=== PATIENT | female | born 1965 | race Caucasian/White ===

== ENCOUNTER 2024-02-20 15:50 | Inpatient (IN) | payer OTHER ==
[~2024-02-20] VITALS: Ht 167.6 cm; Wt 79.1 kg
[2024-02-20 17:19] LABS: BASOPHILS % (AUTO) 0.2 % (0.0-2.0); EOSINOPHILS # (AUTO) 0.3 K/uL (0.0-0.7); HEMATOCRIT 38.7 % (31.2-41.9); HEMOGLOBIN 12.8 g/dL (10.9-14.3); LYMPHOCYTES # (AUTO) 3.3 K/uL (0.8-4.8); LYMPHOCYTES % (AUTO) 25.2 % (20.5-51.5); MEAN CORPUSCULAR HEMOGLOBIN 27.4 uug (24.7-32.8); MEAN CORPUSCULAR HGB CONC 33 g/dL (32.3-35.6); MEAN CORPUSCULAR VOLUME 83.3 fL (75.5-95.3); MONOCYTES # (AUTO) 1.3 K/uL (0.1-1.30); MONOCYTES % (AUTO) 9.7 % (0.0-11.0); NEUTROPHILS # (AUTO) 8.2 K/uL (1.8-8.9); NEUTROPHILS % (AUTO) 62.9 % (38.5-71.5); PLATELET COUNT (AUTO) 349 K/uL (179-408); RED BLOOD CELL COUNT(AUTO) 4.65 MIL/uL (3.63-4.92); RED CELL DISTRIBUTION WIDTH 14.6 % (12.3-17.7)
[2024-02-20 17:23] LABS: DIFFERENTIAL COMMENT 1
[2024-02-20 17:28] LABS: CALCIUM 10.7 mg/dL (8.5-10.1); CREATININE 0.6 mg/dL (0.6-1.3); POTASSIUM 3.9 mmol/L (3.5-5.1)
[2024-02-20 17:34] LABS: BILIRUBIN,DIRECT 0.1 mg/dL (0.0-0.2); BILIRUBIN,TOTAL 0.2 mg/dL (0.2-1.0); TOTAL PROTEIN, SERUM 7.3 g/dL (6.4-8.2)
[2024-02-20 17:38] LABS: LACTIC ACID 2.5 mmol/L (0.4-2.0)
[2024-02-20 17:56] LABS: *BILIRUBIN,URIN NEGATIVE (NEGATIVE); *BLOOD, URINE 2+ (NEGATIVE); *CLARITY,URINE SLIGHTLY CLOUDY (CLEAR); *COLOR,URINE YELLOW (YELLOW); *KETONES,URINE TRACE (NEGATIVE); *PROTEIN,URINE 1+ (NEGATIVE); *UROBILINOGEN,URINE 0.2 E.U./dl (NORMAL); LEUKOCYTE ESTERASE ,URINE TRACE (NEGATIVE); NITRITE, URINE POSITIVE (NEGATIVE)
[2024-02-20 17:57] LABS: UGLUCOSE 3+ (NEGATIVE)
[2024-02-20 17:58] LABS: MAGNESIUM 1.7 mg/dL (1.8-2.4)
[2024-02-20 17:58] LABS: BACTERIA,URINE FEW /HPF (NONE SEEN)
[2024-02-20] MEDS: IV NS 1000 ML 1,000 ML IV ONE (17:59)
[2024-02-20] MEDS ORDERED: MAGNESIUM SULFATE/D5W 300 ML ONE (18:22)
[2024-02-20] MEDS: MAGNESIUM SULFATE/D5W 100 ML IV SCH (18:29)
[2024-02-20] MEDS: GENTAMICIN SULFATE 20 MG/2 ML VIAL IV ONE (19:21)
[2024-02-20] MEDS ORDERED: GENTAMICIN SULFATE 80 MG/2 ML VIAL ONE (19:23)
[2024-02-21] MEDS ORDERED: CEFTRIAXONE /D5W 50ML IVPB **ER PYXIS IV ONE (00:24)
[2024-02-21 00:41] VITALS: BP 132/72; TEMP 98.6; O2SAT 94
[2024-02-21] MEDS ORDERED: TEMAZEPAM 15 MG CAPSULE PO PRN (00:45)
[2024-02-21] MEDS ORDERED: ACETAMINOPHEN 325 MG TABLET PO PRN (00:45)
[2024-02-21] MEDS ORDERED: ONDANSETRON 4 MG/2 ML VIAL IV PRN (00:45)
[2024-02-21] MEDS ORDERED: CEFTRIAXONE 1 G VIAL IM SCH (00:45)
[2024-02-21] MEDS: CEFTRIAXONE 1 G in IV DEXTROSE 5% 50 ML IV SCH (02:11)
[2024-02-21 04:02] VITALS: BP 132/72; TEMP 98.6; O2SAT 94
[2024-02-21] MEDS ORDERED: METF-442 PO (06:12)
[2024-02-21] MEDS ORDERED: CIPR-262 PO (06:12)
[2024-02-21] MEDS ORDERED: ATOR40TA PO (06:12)
[2024-02-21] MEDS ORDERED: APIX5TAB PO (06:12)
[2024-02-21] MEDS ORDERED: ASPI-495 PO (06:12)
[2024-02-21] MEDS ORDERED: LEVE750T4 PO (06:12)
[2024-02-21] MEDS ORDERED: OXYB10TA30 PO (06:12)
[2024-02-21] MEDS ORDERED: AMLO10TA4 PO (06:12)
[2024-02-21 07:06] LABS: BASOPHILS % (AUTO) 0.4 % (0.0-2.0); EOSINOPHILS # (AUTO) 0.2 K/uL (0.0-0.7); EOSINOPHILS % (AUTO) 2.3 % (0.0-7.0); HEMATOCRIT 35.7 % (31.2-41.9); HEMOGLOBIN 12.2 g/dL (10.9-14.3); LYMPHOCYTES # (AUTO) 2.8 K/uL (0.8-4.8); LYMPHOCYTES % (AUTO) 26.2 % (20.5-51.5); MEAN CORPUSCULAR HEMOGLOBIN 28.1 uug (24.7-32.8); MEAN CORPUSCULAR HGB CONC 34 g/dL (32.3-35.6); MONOCYTES # (AUTO) 0.9 K/uL (0.1-1.30); MONOCYTES % (AUTO) 8.9 % (0.0-11.0); NEUTROPHILS # (AUTO) 6.6 K/uL (1.8-8.9); NEUTROPHILS % (AUTO) 62.2 % (38.5-71.5); PLATELET COUNT (AUTO) 313 K/uL (179-408); RED BLOOD CELL COUNT(AUTO) 4.35 MIL/uL (3.63-4.92); RED CELL DISTRIBUTION WIDTH 14.2 % (12.3-17.7); WHITE BLOOD COUNT (AUTO) 10.6 K/uL (3.8-11.8)
[2024-02-21 07:34] LABS: THYROID STIMULATING HORMONE 3.195 mIU/mL (0.358-3.740)
[2024-02-21 07:42] LABS: DIFFERENTIAL COMMENT 1
[2024-02-21 07:50] LABS: ALANINE AMINOTRANSFERASE 25 U/L (14-59); ALBUMIN 2.7 g/dL (3.4-5.0); ALKALINE PHOSPHATASE 96 U/L (50-136); ASPARTATE AMINOTRANSFERASE 17 U/L (15-37); BILIRUBIN,TOTAL 0.4 mg/dL (0.2-1.0); CALCIUM 10.1 mg/dL (8.5-10.1); CARBON DIOXIDE 24 mmol/L (21-32); CHLORIDE 99 mmol/L (98-107); CREATININE 0.4 mg/dL (0.6-1.3); GLUCOSE 333 mg/dL (74-106); MAGNESIUM 2.1 mg/dL (1.8-2.4); NT-PRO BNP 83 pg/mL (0-125); PHOSPHOROUS 2.1 mg/dL (2.5-4.9); POTASSIUM 4.1 mmol/L (3.5-5.1); SODIUM SERUM 132 mmol/L (136-145); TOTAL PROTEIN, SERUM 6.7 g/dL (6.4-8.2); UREA NITROGEN, BLOOD 4 mg/dL (7-18)
[2024-02-21] MEDS: PANTOPRAZOLE SODIUM 40 MG VIAL IV SCH (08:06)
[2024-02-21 08:19] LABS: CHOLESTEROL 167 mg/dL (<200); HDL CHOLESTEROL 46 mg/dL (40-60); TRIGLYCERIDES 145 MG/DL (30-150)
[2024-02-21 11:16] VITALS: BP 113/72; TEMP 98.2; O2SAT 93
[2024-02-21 11:24] LABS: IRON, SERUM 44 ug/dL (50-175)
[2024-02-21] MEDS ORDERED: DEXTROSE 50% 50 ML DISP.SYRIN IV PRN (12:15)
[2024-02-21] MEDS: IV NS 1000 ML 1,000 ML IV SCH (12:24)
[2024-02-21] MEDS: REMEDY ESSENTIAL ZINC PASTE 113 GM TOP SCH (12:25)
[2024-02-21 15:16] VITALS: BP 146/78; TEMP 98.7; O2SAT 95
[2024-02-21] MEDS: BLOOD SUGAR DIAGNOSTIC 1 EACH STRIP VI SCH (16:05)
[2024-02-21] MEDS: SODIUM PHOSPHATE MM 15 MMOL in IV NORMAL SALINE 250 ML IV ONE (16:08)
[2024-02-21] MEDS: APIXABAN 5 MG TABLET PO SCH (17:08)
[2024-02-21] MEDS: INSULIN REGULAR, HUMAN 1000 UNIT/10 ML VIAL SQ PRN (17:09)
[2024-02-21 19:40] VITALS: BP 153/85; TEMP 98.6; O2SAT 95
[2024-02-21] MEDS ORDERED: CEFTRIAXONE 1 G in IV DEXTROSE 5% 50 ML IV SCH (21:00)
[2024-02-21] MEDS: ATORVASTATIN 40 MG TABLET PO SCH (21:00)
[2024-02-21] MEDS: levETIRAcetam 250 MG TABLET PO SCH (22:04)
[2024-02-22 06:25] VITALS: BP 163/90; TEMP 97.4; O2SAT 95
[2024-02-22 07:17] LABS: BASOPHILS % (AUTO) 0.4 % (0.0-2.0); EOSINOPHILS # (AUTO) 0.3 K/uL (0.0-0.7); EOSINOPHILS % (AUTO) 3.1 % (0.0-7.0); HEMATOCRIT 35.6 % (31.2-41.9); HEMOGLOBIN 12.4 g/dL (10.9-14.3); LYMPHOCYTES # (AUTO) 2.7 K/uL (0.8-4.8); LYMPHOCYTES % (AUTO) 25.5 % (20.5-51.5); MEAN CORPUSCULAR HEMOGLOBIN 28.7 uug (24.7-32.8); MEAN CORPUSCULAR HGB CONC 35 g/dL (32.3-35.6); MEAN CORPUSCULAR VOLUME 82.2 fL (75.5-95.3); MONOCYTES % (AUTO) 9.7 % (0.0-11.0); NEUTROPHILS # (AUTO) 6.5 K/uL (1.8-8.9); NEUTROPHILS % (AUTO) 61.3 % (38.5-71.5); PLATELET COUNT (AUTO) 293 K/uL (179-408); RED BLOOD CELL COUNT(AUTO) 4.33 MIL/uL (3.63-4.92); WHITE BLOOD COUNT (AUTO) 10.6 K/uL (3.8-11.8)
[2024-02-22 07:31] LABS: CALCIUM 9.8 mg/dL (8.5-10.1); CARBON DIOXIDE 27 mmol/L (21-32); CHLORIDE 99 mmol/L (98-107); CREATININE 0.4 mg/dL (0.6-1.3); GLUCOSE 329 mg/dL (74-106); MAGNESIUM 1.5 mg/dL (1.8-2.4); PHOSPHOROUS 3.1 mg/dL (2.5-4.9); SODIUM SERUM 134 mmol/L (136-145); UREA NITROGEN, BLOOD 5 mg/dL (7-18)
[2024-02-22 07:34] LABS: DIFFERENTIAL COMMENT 1
[2024-02-22] MEDS: PANTOPRAZOLE SODIUM 40 MG TABLET.DR PO SCH (07:55)
[2024-02-22] MEDS: ASPIRIN EC 81 MG TABLET.DR PO SCH (08:12)
[2024-02-22] MEDS ORDERED: OXYBUTYNIN CHLORIDE 10 MG PO SCH (09:00)
[2024-02-22] MEDS ORDERED: PANTOPRAZOLE SODIUM 40 MG VIAL IV SCH (09:00)
[2024-02-22] MEDS: MAGNESIUM SULFATE/D5W 100 ML IV SCH (12:09)
[2024-02-22 12:26] LABS: EOSINOPHILS % (MANUAL) 3 % (0-8); LYMPHOCYTES % (MANUAL) 26 % (20-40); MONOCYTES % (MANUAL) 10 % (2-10); NEUTROPHILS % (MANUAL) 61 % (42-75); PLATELET ESTIMATE ADEQUATE
[2024-02-22] MEDS: MIRALAX 17 GM POWD.PACK PO SCH (12:33)
[2024-02-22 15:39] VITALS: BP 150/83; TEMP 97.6; O2SAT 94
[2024-02-22 19:40] VITALS: BP 153/97; TEMP 98.3; O2SAT 97
[2024-02-22] MEDS: SENNOSIDES 1 TABLET PO SCH (20:37)
[2024-02-23 06:17] VITALS: BP 123/81; TEMP 97.6; O2SAT 94
[2024-02-23 07:00] LABS: BASOPHILS % (AUTO) 0.4 % (0.0-2.0); EOSINOPHILS # (AUTO) 0.3 K/uL (0.0-0.7); EOSINOPHILS % (AUTO) 2.9 % (0.0-7.0); HEMATOCRIT 36.5 % (31.2-41.9); HEMOGLOBIN 12.4 g/dL (10.9-14.3); LYMPHOCYTES # (AUTO) 2.7 K/uL (0.8-4.8); MEAN CORPUSCULAR HEMOGLOBIN 28.6 uug (24.7-32.8); MEAN CORPUSCULAR HGB CONC 34 g/dL (32.3-35.6); MONOCYTES # (AUTO) 0.9 K/uL (0.1-1.30); MONOCYTES % (AUTO) 8.7 % (0.0-11.0); NEUTROPHILS # (AUTO) 6.2 K/uL (1.8-8.9); PLATELET COUNT (AUTO) 321 K/uL (179-408); RED BLOOD CELL COUNT(AUTO) 4.35 MIL/uL (3.63-4.92); WHITE BLOOD COUNT (AUTO) 10.2 K/uL (3.8-11.8)
[2024-02-23 07:23] LABS: DIFFERENTIAL COMMENT 1
[2024-02-23 07:35] LABS: CALCIUM 9.9 mg/dL (8.5-10.1); CREATININE 0.5 mg/dL (0.6-1.3); MAGNESIUM 1.5 mg/dL (1.8-2.4); PHOSPHOROUS 3.2 mg/dL (2.5-4.9); POTASSIUM 4.2 mmol/L (3.5-5.1)
[2024-02-23] MEDS: MAGNESIUM SULFATE/D5W 100 ML IV SCH (10:02)
[2024-02-23 11:32] VITALS: BP 168/87; TEMP 97.6; O2SAT 97
[2024-02-23 15:24] VITALS: BP 138/73; TEMP 97.5; O2SAT 94
[2024-02-23] MEDS: AMLODIPINE 10 MG TABLET PO SCH (16:27)
[2024-02-23] MEDS: INSULIN REGULAR, HUMAN 1000 UNIT/10 ML VIAL SQ PRN (16:55)
[2024-02-23] MEDS: METFORMIN HCL 500 MG TABLET PO SCH (17:21)
[2024-02-23 19:40] VITALS: BP 138/73; TEMP 98.3; O2SAT 92
[2024-02-23] MEDS: INSULIN REGULAR, HUMAN 300 UNITS/3 ML VIAL SQ PRN (20:59)
[2024-02-24 06:29] VITALS: BP 136/77; TEMP 97.6; O2SAT 97
[2024-02-24 07:04] LABS: BASOPHILS # (AUTO) 0.1 K/UL (0.0-0.2); BASOPHILS % (AUTO) 0.6 % (0.0-2.0); EOSINOPHILS # (AUTO) 0.3 K/uL (0.0-0.7); EOSINOPHILS % (AUTO) 2.7 % (0.0-7.0); HEMATOCRIT 38.3 % (31.2-41.9); HEMOGLOBIN 12.9 g/dL (10.9-14.3); LYMPHOCYTES # (AUTO) 3.4 K/uL (0.8-4.8); LYMPHOCYTES % (AUTO) 28.3 % (20.5-51.5); MEAN CORPUSCULAR HEMOGLOBIN 27.8 uug (24.7-32.8); MEAN CORPUSCULAR HGB CONC 34 g/dL (32.3-35.6); MEAN CORPUSCULAR VOLUME 82.6 fL (75.5-95.3); MONOCYTES # (AUTO) 0.8 K/uL (0.1-1.30); MONOCYTES % (AUTO) 6.8 % (0.0-11.0); NEUTROPHILS # (AUTO) 7.3 K/uL (1.8-8.9); NEUTROPHILS % (AUTO) 61.6 % (38.5-71.5); PLATELET COUNT (AUTO) 342 K/uL (179-408); RED BLOOD CELL COUNT(AUTO) 4.64 MIL/uL (3.63-4.92); RED CELL DISTRIBUTION WIDTH 14.6 % (12.3-17.7); WHITE BLOOD COUNT (AUTO) 11.9 K/uL (3.8-11.8)
[2024-02-24 07:17] LABS: DIFFERENTIAL COMMENT 1
[2024-02-24 07:18] LABS: CALCIUM 10.3 mg/dL (8.5-10.1); CARBON DIOXIDE 27 mmol/L (21-32); CHLORIDE 97 mmol/L (98-107); CREATININE 0.4 mg/dL (0.6-1.3); GLUCOSE 326 mg/dL (74-106); MAGNESIUM 1.7 mg/dL (1.8-2.4); POTASSIUM 4.1 mmol/L (3.5-5.1); SODIUM SERUM 133 mmol/L (136-145); UREA NITROGEN, BLOOD 9 mg/dL (7-18)
[2024-02-24] MEDS ORDERED: OXYBUTYNIN XL 5 MG TABSR PO SCH (09:00)
[2024-02-24 11:33] VITALS: BP 157/81; TEMP 97.8; O2SAT 97
[2024-02-24] MEDS ORDERED: NITR100C6 PO (12:22)
[2024-02-24] MEDS: INSULIN GLARGINE,HUM 300 UNITS/3 ML CARTRIDGE SQ SCH (13:05)
[2024-02-24] MEDS: MAGNESIUM OXIDE 400 MG TABLET PO ONE (13:06)
[2024-02-24] MEDS: GLIMEPIRIDE 2 MG TABLET PO SCH (13:06)
[2024-02-24] MEDS: NITROFURANTOIN/NITROFURAN MAC 100 MG CAPSULE PO SCH (13:06)
[2024-02-24 16:00] VITALS: BP 116/80; TEMP 97.6; O2SAT 99
[2024-02-24] MEDS ORDERED: OXYBUTYNIN CHLORIDE 5 MG TABLET PO SCH (17:00)
[2024-02-24] MEDS ORDERED: levETIRAcetam 500 MG/5 ML LIQUID UDC PO SCH (21:00)
[2024-02-25] MEDS ORDERED: PANTOPRAZOLE ORAL SUSPENSION 40 MG SUSPDR.PKT PO SCH (07:00)
[2024-02-25] MEDS ORDERED: OXYBUTYNIN CHLORIDE 5 MG TABLET PO SCH (09:00)
[2024-02-25] MEDS ORDERED: ASPIRIN 81 MG TAB.CHEW PO SCH (09:00)
== END 2024-02-24 19:50 | disposition hospice, home (50) | DRG 463 ==
LOC: ER 15:50 → TELE3 22:24 → MEDSURG3 02-21 00:45
PROVIDERS: ADMIT Internal Medicine
DX: N39.0 Urinary tract infection, site not specified (principal); I26.99 Other pulmonary embolism without acute cor pulmonale; G93.41 Metabolic encephalopathy; E87.20 Acidosis, unspecified; D49.6 Neoplasm of unspecified behavior of brain; B96.20 Unspecified Escherichia coli [E. coli] as the cause of diseases classified elsewhere; G93.89 Other specified disorders of brain; Z79.01 Long term (current) use of anticoagulants; E83.42 Hypomagnesemia; G40.909 Epilepsy, unspecified, not intractable, without status epilepticus; R47.01 Aphasia; E78.5 Hyperlipidemia, unspecified; E11.65 Type 2 diabetes mellitus with hyperglycemia; I10 Essential (primary) hypertension; Z79.82 Long term (current) use of aspirin; R60.0 Localized edema; E88.09 Other disorders of plasma-protein metabolism, not elsewhere classified; E83.52 Hypercalcemia; Z16.24 Resistance to multiple antibiotics; Z86.711 Personal history of pulmonary embolism; Z74.01 Bed confinement status; Z79.84 Long term (current) use of oral hypoglycemic drugs; Z79.899 Other long term (current) drug therapy; Z86.73 Personal history of transient ischemic attack (TIA), and cerebral infarction without residual deficits; Z91.199 Patient's noncompliance with other medical treatment and regimen due to unspecified reason; K63.89 Other specified diseases of intestine
CPT/HCPCS: 36415; 70030-TC; 70551; 82330; 83550; 83605; 83690; 83735; 84100; 84443; 85025; A4606; A4663; A6213; C1758; G0378; J0696; J1580; J1815; J2470; J3475; J3490; J7040

== ENCOUNTER 2024-08-29 22:16 | Inpatient (IN) | payer OTHER ==
[~2024-08-29] VITALS: Ht 167.6 cm; Wt 75.0 kg
[~2024-08-29 22:16] MED LIST: AMLO10TA4 PO; APIX5TAB PO; ASPI-495 PO; ATOR40TA PO; CIPR-262 PO; LEVE750T4 PO; METF-442 PO; NITR100C6 PO; OXYB10TA30 PO
[2024-08-29 22:46] LABS: BASOPHILS % (AUTO) 0.2 % (0.0-2.0); EOSINOPHILS # (AUTO) 0.1 K/uL (0.0-0.7); EOSINOPHILS % (AUTO) 0.4 % (0.0-7.0); HEMATOCRIT 41.8 % (31.2-41.9); HEMOGLOBIN 13.5 g/dL (10.9-14.3); LYMPHOCYTES # (AUTO) 2.6 K/uL (0.8-4.8); LYMPHOCYTES % (AUTO) 15.1 % (20.5-51.5); MEAN CORPUSCULAR HEMOGLOBIN 25.8 uug (24.7-32.8); MEAN CORPUSCULAR HGB CONC 32 g/dL (32.3-35.6); MEAN CORPUSCULAR VOLUME 79.9 fL (75.5-95.3); MONOCYTES # (AUTO) 1.9 K/uL (0.1-1.30); MONOCYTES % (AUTO) 11.3 % (0.0-11.0); NEUTROPHILS # (AUTO) 12.3 K/uL (1.8-8.9); PLATELET COUNT (AUTO) 460 K/uL (179-408); RED BLOOD CELL COUNT(AUTO) 5.23 MIL/uL (3.63-4.92); RED CELL DISTRIBUTION WIDTH 16.2 % (12.3-17.7); WHITE BLOOD COUNT (AUTO) 16.9 K/uL (3.8-11.8)
[2024-08-29 22:47] LABS: DIFFERENTIAL COMMENT 1
[2024-08-29] MEDS: IV NORMAL SALINE 1000 ML BAG IV ONE (22:48)
[2024-08-29 22:52] LABS: CALCIUM 10.2 mg/dL (8.5-10.1); CARBON DIOXIDE 25 mmol/L (21-32); CHLORIDE 112 mmol/L (98-107); CREATININE 0.7 mg/dL (0.6-1.3); GLUCOSE 338 mg/dL (74-106); POTASSIUM 3.5 mmol/L (3.5-5.1); SODIUM SERUM 148 mmol/L (136-145); UREA NITROGEN, BLOOD 23 mg/dL (7-18)
[2024-08-29] MEDS ORDERED: PIPERACILLIN/TAZOBACTAM/D5W 50 ML IV ONE (22:52)
[2024-08-29] MEDS ORDERED: levETIRAcetam 500 MG/5 ML VIAL IV ONE (22:54)
[2024-08-29 23:02] LABS: LACTIC ACID 2.5 mmol/L (0.4-2.0)
[2024-08-29 23:04] LABS: ALANINE AMINOTRANSFERASE 17 U/L (14-59); ALBUMIN 2.8 g/dL (3.4-5.0); ALKALINE PHOSPHATASE 95 U/L (50-136); ASPARTATE AMINOTRANSFERASE < 5 U/L (15-37); BILIRUBIN,DIRECT 0.1 mg/dL (0.0-0.2); BILIRUBIN,TOTAL 0.2 mg/dL (0.2-1.0); NT-PRO BNP 276 pg/mL (0-125); TOTAL PROTEIN, SERUM 7.3 g/dL (6.4-8.2)
[2024-08-29] MEDS: PIPERACILLIN SODIUM/TAZOBACTAM 3.375 G in IV DEXTROSE 5% 50 ML IV ONE (23:12)
[2024-08-29 23:58] LABS: *BILIRUBIN,URIN NEGATIVE (NEGATIVE); *BLOOD, URINE 2+ (NEGATIVE); *CLARITY,URINE CLOUDY (CLEAR); *COLOR,URINE YELLOW (YELLOW); *KETONES,URINE NEGATIVE (NEGATIVE); *PROTEIN,URINE 3+ (NEGATIVE); *UROBILINOGEN,URINE 0.2 E.U./dl (NORMAL); LEUKOCYTE ESTERASE ,URINE 1+ (NEGATIVE); NITRITE, URINE POSITIVE (NEGATIVE); PH,URINE 7.5 (5.0-8.0); UGLUCOSE 3+ (NEGATIVE)
[2024-08-30] VITALS (9 sets, daily range): BP systolic 131–154; BP diastolic 79–90; TEMP 97.8–99.7; O2SAT 96–98
[2024-08-30 00:12] LABS: BACTERIA,URINE MANY /HPF (NONE SEEN); SQUAMOUS EPITHELIAL CELL,UR FEW /HPF (NONE SEEN); WBC,URINE 50-80 /HPF (0-3)
[2024-08-30 00:13] LABS: MUCUS,URINE MANY /LPF (0-FEW); TRIPLE PHOSPHATE CRYSTAL,UR MODERATE /HPF (NONE SEEN)
[2024-08-30] MEDS ORDERED: CYAN-51 PO (00:23)
[2024-08-30] MEDS ORDERED: GLIM4TAB37 PO (00:23)
[2024-08-30] MEDS ORDERED: MAGNESIUM HYDROXIDE 30 ML LIQUID UDC PO PRN (01:00)
[2024-08-30] MEDS ORDERED: DEXTROSE 50% 50 ML DISP.SYRIN IV PRN (01:00)
[2024-08-30] MEDS: IV 1/2NS 1000 ML 1,000 ML IV SCH (02:35)
[2024-08-30] MEDS ORDERED: PIPERACILLIN/TAZOBACTAM/D5W 50 ML IV ONE (03:00)
[2024-08-30] MEDS: PIPERACILLIN SODIUM/TAZOBACTAM 3.375 G in IV DEXTROSE 5% 50 ML IV SCH (05:17)
[2024-08-30 06:49] LABS: BASOPHILS % (AUTO) 0.2 % (0.0-2.0); EOSINOPHILS # (AUTO) 0.1 K/uL (0.0-0.7); EOSINOPHILS % (AUTO) 0.5 % (0.0-7.0); HEMATOCRIT 38.2 % (31.2-41.9); HEMOGLOBIN 11.9 g/dL (10.9-14.3); LYMPHOCYTES # (AUTO) 1.4 K/uL (0.8-4.8); LYMPHOCYTES % (AUTO) 11.8 % (20.5-51.5); MEAN CORPUSCULAR HEMOGLOBIN 25.2 uug (24.7-32.8); MEAN CORPUSCULAR HGB CONC 31 g/dL (32.3-35.6); MEAN CORPUSCULAR VOLUME 81.1 fL (75.5-95.3); MONOCYTES # (AUTO) 0.7 K/uL (0.1-1.30); MONOCYTES % (AUTO) 5.5 % (0.0-11.0); NEUTROPHILS # (AUTO) 9.9 K/uL (1.8-8.9); PLATELET COUNT (AUTO) 362 K/uL (179-408); RED BLOOD CELL COUNT(AUTO) 4.71 MIL/uL (3.63-4.92); RED CELL DISTRIBUTION WIDTH 16.2 % (12.3-17.7); WHITE BLOOD COUNT (AUTO) 12.1 K/uL (3.8-11.8)
[2024-08-30 06:55] LABS: DIFFERENTIAL COMMENT 1
[2024-08-30 06:59] LABS: CALCIUM 9.4 mg/dL (8.5-10.1); CREATININE 0.6 mg/dL (0.6-1.3); MAGNESIUM 1.3 mg/dL (1.8-2.4); PHOSPHOROUS 2.3 mg/dL (2.5-4.9); POTASSIUM 3.4 mmol/L (3.5-5.1)
[2024-08-30] MEDS: BLOOD SUGAR DIAGNOSTIC 1 EACH STRIP VI SCH (07:00)
[2024-08-30] MEDS: MAGNESIUM SULFATE/D5W 100 ML IV SCH (09:32)
[2024-08-30] MEDS: ENOXAPARIN SODIUM 40 MG/0.4 ML DISP.SYRIN SQ SCH (09:32)
[2024-08-30] MEDS: INSULIN REGULAR, HUMAN 1000 UNIT/10 ML VIAL SQ PRN (09:33)
[2024-08-30] MEDS: PANTOPRAZOLE SODIUM 40 MG VIAL IV SCH (09:34)
[2024-08-30] MEDS ORDERED: POTASSIUM CHLORIDE 50 ML IV SCH (12:00)
[2024-08-30] MEDS: MEDIHONEY= THERAHONEY 1.5 OZ TUBE TOP SCH (13:17)
[2024-08-30] MEDS: PIPERACILLIN SODIUM/TAZOBACTAM 3.375 G in IV DEXTROSE 5% 100 ML IV SCH (14:15)
[2024-08-30] MEDS: POTASSIUM PHOSPHATE MM 15 MMOL in IV NORMAL SALINE 250 ML IV ONE (14:15)
[2024-08-30] MEDS: CLOTRIMAZOLE 1% CREAM 30 GM TUBE TOP SCH (16:30)
[2024-08-30] MEDS: GLIMEPIRIDE 4 MG TABLET PO SCH (16:33)
[2024-08-30] MEDS ORDERED: Medication Not On Formulary EA (Metformin Hcl 1,000 MG) PO SCH (17:00)
[2024-08-30] MEDS ORDERED: APIXABAN 5 MG TABLET PO SCH (17:00)
[2024-08-30] MEDS ORDERED: TRAZ-257 PO (17:15)
[2024-08-30] MEDS ORDERED: INSU100I26 SQ (17:17)
[2024-08-30] MEDS ORDERED: INSU100I34 SQ (17:17)
[2024-08-30] MEDS ORDERED: ERGO500040 PO (17:19)
[2024-08-30] MEDS: METFORMIN XR 500 MG TAB.SR.24H PO SCH (18:59)
[2024-08-30] MEDS: ATORVASTATIN 40 MG TABLET PO SCH (20:58)
[2024-08-31 06:00] VITALS: BP 125/71; TEMP 98; O2SAT 96
[2024-08-31 07:03] LABS: CALCIUM 9.2 mg/dL (8.5-10.1); CARBON DIOXIDE 25 mmol/L (21-32); CHLORIDE 111 mmol/L (98-107); CHOLESTEROL 179 mg/dL (<200); CREATININE 0.4 mg/dL (0.6-1.3); GLUCOSE 209 mg/dL (74-106); HDL CHOLESTEROL 30 mg/dL (40-60); MAGNESIUM 1.7 mg/dL (1.8-2.4); POTASSIUM 3.2 mmol/L (3.5-5.1); SODIUM SERUM 144 mmol/L (136-145); TRIGLYCERIDES 263 MG/DL (30-150); UREA NITROGEN, BLOOD 11 mg/dL (7-18)
[2024-08-31 07:15] LABS: THYROID STIMULATING HORMONE 0.627 mIU/mL (0.358-3.740)
[2024-08-31 07:44] VITALS: BP 124/77; TEMP 99.3; O2SAT 94
[2024-08-31] MEDS: ASPIRIN EC 81 MG TABLET.DR PO SCH (08:44)
[2024-08-31] MEDS: CYANOCOBALAMIN 1,000 MCG TABLET PO SCH (08:44)
[2024-08-31] MEDS: AMLODIPINE 10 MG TABLET PO SCH (08:44)
[2024-08-31] MEDS: OXYBUTYNIN XL 5 MG TABSR PO SCH (08:44)
[2024-08-31] MEDS ORDERED: Medication Not On Formulary EA (Oxybutynin Chloride (Oxybutynin Chloride Er) 10 MG) PO SCH (09:00)
[2024-08-31] MEDS: POTASSIUM CHLORIDE 50 ML IV SCH (10:17)
[2024-08-31 12:00] VITALS: BP 122/78; TEMP 98.4; O2SAT 96
[2024-08-31] MEDS: MAGNESIUM SULFATE/D5W 100 ML IV SCH (12:27)
[2024-08-31 15:56] VITALS: BP 112/70; TEMP 97.8; O2SAT 94
[2024-08-31 23:36] VITALS: BP 122/71; TEMP 98.9; O2SAT 93
[2024-09-01 00:58] VITALS: BP 141/78; TEMP 98.9; O2SAT 93
[2024-09-01 04:35] VITALS: BP 124/62; TEMP 98.6; O2SAT 94
[2024-09-01 06:29] VITALS: BP 111/79; TEMP 99.3; O2SAT 93
[2024-09-01 07:13] LABS: BASOPHILS # (AUTO) 0.1 K/UL (0.0-0.2); BASOPHILS % (AUTO) 0.4 % (0.0-2.0); EOSINOPHILS # (AUTO) 0.2 K/uL (0.0-0.7); EOSINOPHILS % (AUTO) 1.6 % (0.0-7.0); HEMATOCRIT 34.2 % (31.2-41.9); LYMPHOCYTES # (AUTO) 2.1 K/uL (0.8-4.8); LYMPHOCYTES % (AUTO) 14.8 % (20.5-51.5); MEAN CORPUSCULAR HEMOGLOBIN 25.4 uug (24.7-32.8); MEAN CORPUSCULAR HGB CONC 32 g/dL (32.3-35.6); MEAN CORPUSCULAR VOLUME 79.1 fL (75.5-95.3); MONOCYTES # (AUTO) 1.7 K/uL (0.1-1.30); MONOCYTES % (AUTO) 12.1 % (0.0-11.0); NEUTROPHILS % (AUTO) 71.1 % (38.5-71.5); PLATELET COUNT (AUTO) 321 K/uL (179-408); RED BLOOD CELL COUNT(AUTO) 4.33 MIL/uL (3.63-4.92); RED CELL DISTRIBUTION WIDTH 15.6 % (12.3-17.7); WHITE BLOOD COUNT (AUTO) 14.1 K/uL (3.8-11.8)
[2024-09-01 07:28] LABS: DIFFERENTIAL COMMENT 1
[2024-09-01 07:32] LABS: CALCIUM 8.8 mg/dL (8.5-10.1); CARBON DIOXIDE 24 mmol/L (21-32); CHLORIDE 107 mmol/L (98-107); CREATININE 0.4 mg/dL (0.6-1.3); GLUCOSE 311 mg/dL (74-106); MAGNESIUM 1.6 mg/dL (1.8-2.4); PHOSPHOROUS 1.9 mg/dL (2.5-4.9); POTASSIUM 3.2 mmol/L (3.5-5.1); SODIUM SERUM 140 mmol/L (136-145); UREA NITROGEN, BLOOD 10 mg/dL (7-18)
[2024-09-01] MEDS: POTASSIUM CHLORIDE 20 MEQ POWDER PACKET PO ONE (10:52)
[2024-09-01] MEDS: MAGNESIUM OXIDE 400 MG TABLET PO ONE (10:52)
[2024-09-01 12:43] VITALS: BP 131/80; TEMP 97; O2SAT 98
[2024-09-01] MEDS ORDERED: DEXTROSE 50% 50 ML DISP.SYRIN IV PRN (13:45)
[2024-09-01 16:00] VITALS: BP 129/87; TEMP 97.2; O2SAT 98
[2024-09-01] MEDS: BLOOD SUGAR DIAGNOSTIC 1 EACH STRIP VI SCH (16:16)
[2024-09-01] MEDS: NEUTRA PHOS PACKET PO ONE (16:16)
[2024-09-01] MEDS: INSULIN REGULAR, HUMAN 1000 UNIT/10 ML VIAL SQ PRN (16:19)
[2024-09-01 19:00] VITALS: BP 142/83; TEMP 99.4; O2SAT 94
[2024-09-01] MEDS: levETIRAcetam 500 MG TABLET PO SCH (20:39)
[2024-09-01] MEDS: INSULIN REGULAR, HUMAN 300 UNITS/3 ML VIAL SQ PRN (20:44)
[2024-09-02] VITALS (7 sets, daily range): BP systolic 126–158; BP diastolic 69–87; TEMP 97.4–99.5; O2SAT 94–97
[2024-09-02] MEDS: PANTOPRAZOLE ORAL SUSPENSION 40 MG SUSPDR.PKT PO SCH (06:46)
[2024-09-02 07:13] LABS: BASOPHILS % (AUTO) 0.2 % (0.0-2.0); DIFFERENTIAL COMMENT 0; EOSINOPHILS # (AUTO) 0.1 K/uL (0.0-0.7); HEMATOCRIT 34.6 % (31.2-41.9); HEMOGLOBIN 11.2 g/dL (10.9-14.3); LYMPHOCYTES # (AUTO) 2.8 K/uL (0.8-4.8); LYMPHOCYTES % (AUTO) 19.2 % (20.5-51.5); MEAN CORPUSCULAR HEMOGLOBIN 25.8 uug (24.7-32.8); MEAN CORPUSCULAR HGB CONC 33 g/dL (32.3-35.6); MEAN CORPUSCULAR VOLUME 79.5 fL (75.5-95.3); MONOCYTES # (AUTO) 1.8 K/uL (0.1-1.30); MONOCYTES % (AUTO) 12.4 % (0.0-11.0); NEUTROPHILS # (AUTO) 9.9 K/uL (1.8-8.9); NEUTROPHILS % (AUTO) 67.2 % (38.5-71.5); PLATELET COUNT (AUTO) 320 K/uL (179-408); RED BLOOD CELL COUNT(AUTO) 4.35 MIL/uL (3.63-4.92); RED CELL DISTRIBUTION WIDTH 15.3 % (12.3-17.7); WHITE BLOOD COUNT (AUTO) 14.7 K/uL (3.8-11.8)
[2024-09-02 07:21] LABS: CALCIUM 9.4 mg/dL (8.5-10.1); CREATININE 0.6 mg/dL (0.6-1.3); MAGNESIUM 1.4 mg/dL (1.8-2.4); PHOSPHOROUS 2.2 mg/dL (2.5-4.9); POTASSIUM 3.2 mmol/L (3.5-5.1)
[2024-09-02] MEDS: ASPIRIN 81 MG TAB.CHEW PO SCH (08:34)
[2024-09-02] MEDS: ONDANSETRON 4 MG/2 ML VIAL IV PRN (09:06)
[2024-09-02] MEDS: POTASSIUM CHLORIDE 20 MEQ TAB.PRT.SR PO SCH (11:52)
[2024-09-02] MEDS: MAGNESIUM OXIDE 400 MG TABLET PO SCH (11:52)
[2024-09-02] MEDS: POTASSIUM CHLORIDE 50 ML IV SCH (14:11)
[2024-09-02] MEDS: NEUTRA PHOS PACKET PO ONE (16:28)
[2024-09-02] MEDS: MAGNESIUM SULFATE/D5W 100 ML IV SCH (17:02)
[2024-09-02] MEDS: TRAZODONE 100 MG TABLET PO SCH (20:32)
[2024-09-02] MEDS: INSULIN GLARGINE,HUM 300 UNITS/3 ML CARTRIDGE SQ SCH (20:37)
[2024-09-03] MEDS: ACETAMINOPHEN 650 MG SUPP.RECT RC PRN (05:21)
[2024-09-03 05:59] VITALS: BP 126/79; TEMP 100.1; O2SAT 99
[2024-09-03 06:46] LABS: EOSINOPHILS % (AUTO) 0.1 % (0.0-7.0); HEMATOCRIT 33.3 % (31.2-41.9); HEMOGLOBIN 10.8 g/dL (10.9-14.3); LYMPHOCYTES # (AUTO) 1.2 K/uL (0.8-4.8); LYMPHOCYTES % (AUTO) 6.2 % (20.5-51.5); MEAN CORPUSCULAR HEMOGLOBIN 25.6 uug (24.7-32.8); MEAN CORPUSCULAR HGB CONC 33 g/dL (32.3-35.6); MEAN CORPUSCULAR VOLUME 78.4 fL (75.5-95.3); MONOCYTES # (AUTO) 1.6 K/uL (0.1-1.30); MONOCYTES % (AUTO) 8.8 % (0.0-11.0); NEUTROPHILS # (AUTO) 15.9 K/uL (1.8-8.9); NEUTROPHILS % (AUTO) 84.9 % (38.5-71.5); PLATELET COUNT (AUTO) 306 K/uL (179-408); RED BLOOD CELL COUNT(AUTO) 4.24 MIL/uL (3.63-4.92); RED CELL DISTRIBUTION WIDTH 15.3 % (12.3-17.7); WHITE BLOOD COUNT (AUTO) 18.7 K/uL (3.8-11.8)
[2024-09-03 06:52] LABS: DIFFERENTIAL COMMENT 1
[2024-09-03 06:53] LABS: CALCIUM 9.3 mg/dL (8.5-10.1); CREATININE 0.7 mg/dL (0.6-1.3); MAGNESIUM 1.8 mg/dL (1.8-2.4); PHOSPHOROUS 3.1 mg/dL (2.5-4.9); POTASSIUM 3.3 mmol/L (3.5-5.1)
[2024-09-03 08:00] VITALS: BP 130/63; TEMP 99.2; O2SAT 95
[2024-09-03 11:00] VITALS: BP 135/76; TEMP 98.5; O2SAT 95
[2024-09-03] MEDS ORDERED: POTASSIUM CHLORIDE 20 MEQ TAB.PRT.SR PO ONE (13:00)
[2024-09-03] MEDS: POTASSIUM CHLORIDE 50 ML IV SCH (13:09)
[2024-09-03 16:13] VITALS: BP 136/76; TEMP 98.3; O2SAT 96
[2024-09-03 19:10] VITALS: BP 131/75; TEMP 99.7; O2SAT 96
[2024-09-03] MEDS: METRONIDAZOLE 500 MG/NS 100ML 500 MG in PREMIXED 1 EACH IV SCH (22:17)
[2024-09-03] MEDS ORDERED: CEFTRIAXONE /D5W 50ML IVPB **ER PYXIS IV ONE (22:38)
[2024-09-03] MEDS: CEFTRIAXONE 1 G in IV DEXTROSE 5% 50 ML IV SCH (23:20)
[2024-09-04 06:03] VITALS: BP 145/74; TEMP 99.7; O2SAT 92
[2024-09-04 11:22] VITALS: BP 115/70; TEMP 98.9; O2SAT 96
[2024-09-04 15:39] VITALS: BP 145/94; TEMP 98.2; O2SAT 95
[2024-09-04 16:14] LABS: *BILIRUBIN,URIN NEGATIVE (NEGATIVE); *BLOOD, URINE NEGATIVE (NEGATIVE); *CLARITY,URINE CLEAR (CLEAR); *COLOR,URINE YELLOW (YELLOW); *KETONES,URINE TRACE (NEGATIVE); *PROTEIN,URINE TRACE (NEGATIVE); *UROBILINOGEN,URINE 0.2 E.U./dl (NORMAL); LEUKOCYTE ESTERASE ,URINE NEGATIVE (NEGATIVE); NITRITE, URINE NEGATIVE (NEGATIVE); PH,URINE 5.5 (5.0-8.0); UGLUCOSE NEGATIVE (NEGATIVE)
[2024-09-04 16:29] LABS: BASOPHILS % (AUTO) 0.1 % (0.0-2.0); EOSINOPHILS # (AUTO) 0.1 K/uL (0.0-0.7); EOSINOPHILS % (AUTO) 0.6 % (0.0-7.0); HEMATOCRIT 33.7 % (31.2-41.9); HEMOGLOBIN 10.8 g/dL (10.9-14.3); LYMPHOCYTES # (AUTO) 1.6 K/uL (0.8-4.8); MEAN CORPUSCULAR HEMOGLOBIN 25.1 uug (24.7-32.8); MEAN CORPUSCULAR HGB CONC 32 g/dL (32.3-35.6); MONOCYTES # (AUTO) 1.5 K/uL (0.1-1.30); MONOCYTES % (AUTO) 8.5 % (0.0-11.0); NEUTROPHILS # (AUTO) 14.3 K/uL (1.8-8.9); NEUTROPHILS % (AUTO) 81.8 % (38.5-71.5); PLATELET COUNT (AUTO) 351 K/uL (179-408); RED BLOOD CELL COUNT(AUTO) 4.32 MIL/uL (3.63-4.92); RED CELL DISTRIBUTION WIDTH 15.3 % (12.3-17.7); WHITE BLOOD COUNT (AUTO) 17.5 K/uL (3.8-11.8)
[2024-09-04 16:32] LABS: BACTERIA,URINE FEW /HPF (NONE SEEN); URIC ACID CRYSTALS,URINE MODERATE /HPF (NONE SEEN); WBC,URINE 0-3 /HPF (0-3)
[2024-09-04 16:39] LABS: DIFFERENTIAL COMMENT 1
[2024-09-04 16:40] LABS: CALCIUM 9.3 mg/dL (8.5-10.1); CREATININE 0.6 mg/dL (0.6-1.3); POTASSIUM 3.6 mmol/L (3.5-5.1)
[2024-09-04] MEDS: IV D5/ 0.9% NACL 1,000 ML IV PRN (16:46)
[2024-09-04 16:57] LABS: BILIRUBIN,TOTAL 0.3 mg/dL (0.2-1.0); MAGNESIUM 1.5 mg/dL (1.8-2.4); PHOSPHOROUS 2.7 mg/dL (2.5-4.9); TOTAL PROTEIN, SERUM 6.3 g/dL (6.4-8.2)
[2024-09-04 19:33] VITALS: BP 151/82; TEMP 99.2; O2SAT 93
[2024-09-05 06:01] VITALS: BP 158/78; TEMP 98.9; O2SAT 96
[2024-09-05] MEDS ORDERED: DEXTROSE 50% 50 ML DISP.SYRIN IV PRN (07:00)
[2024-09-05] MEDS: NITROGLYCERIN OINT 1 GM PACKET TP SCH (08:21)
[2024-09-05 11:50] VITALS: BP 131/71; TEMP 98; O2SAT 95
[2024-09-05] MEDS: BLOOD SUGAR DIAGNOSTIC 1 EACH STRIP VI SCH (12:02)
[2024-09-05] MEDS: INSULIN REGULAR, HUMAN 1000 UNIT/10 ML VIAL SQ PRN (12:03)
[2024-09-05 15:40] VITALS: BP 133/70; TEMP 98; O2SAT 94
[2024-09-05 19:00] VITALS: BP 133/77; TEMP 98.9; O2SAT 95
[2024-09-06 06:00] VITALS: BP 129/65; TEMP 98.9; O2SAT 94
[2024-09-06 06:34] LABS: BASOPHILS % (AUTO) 0.2 % (0.0-2.0); EOSINOPHILS # (AUTO) 0.1 K/uL (0.0-0.7); EOSINOPHILS % (AUTO) 0.5 % (0.0-7.0); HEMATOCRIT 30.1 % (31.2-41.9); HEMOGLOBIN 9.6 g/dL (10.9-14.3); LYMPHOCYTES % (AUTO) 12.5 % (20.5-51.5); MEAN CORPUSCULAR HEMOGLOBIN 24.9 uug (24.7-32.8); MEAN CORPUSCULAR HGB CONC 32 g/dL (32.3-35.6); MEAN CORPUSCULAR VOLUME 77.8 fL (75.5-95.3); MONOCYTES # (AUTO) 1.9 K/uL (0.1-1.30); MONOCYTES % (AUTO) 12.1 % (0.0-11.0); NEUTROPHILS # (AUTO) 11.9 K/uL (1.8-8.9); NEUTROPHILS % (AUTO) 74.7 % (38.5-71.5); PLATELET COUNT (AUTO) 355 K/uL (179-408); RED BLOOD CELL COUNT(AUTO) 3.87 MIL/uL (3.63-4.92); RED CELL DISTRIBUTION WIDTH 15.1 % (12.3-17.7); WHITE BLOOD COUNT (AUTO) 15.9 K/uL (3.8-11.8)
[2024-09-06 06:41] LABS: DIFFERENTIAL COMMENT 1
[2024-09-06 06:51] LABS: ALANINE AMINOTRANSFERASE 11 U/L (14-59); ALBUMIN 1.6 g/dL (3.4-5.0); ALKALINE PHOSPHATASE 70 U/L (50-136); ASPARTATE AMINOTRANSFERASE 6 U/L (15-37); BILIRUBIN,TOTAL 0.1 mg/dL (0.2-1.0); CALCIUM 8.4 mg/dL (8.5-10.1); CARBON DIOXIDE 24 mmol/L (21-32); CHLORIDE 105 mmol/L (98-107); CREATININE 0.4 mg/dL (0.6-1.3); GLUCOSE 68 mg/dL (74-106); MAGNESIUM 1.4 mg/dL (1.8-2.4); PHOSPHOROUS 2.6 mg/dL (2.5-4.9); SODIUM SERUM 140 mmol/L (136-145); TOTAL PROTEIN, SERUM 5.3 g/dL (6.4-8.2); UREA NITROGEN, BLOOD 4 mg/dL (7-18)
[2024-09-06 07:13] LABS: POTASSIUM 2.7 mmol/L (3.5-5.1)
[2024-09-06] MEDS: POTASSIUM PHOSPHATE MM 15 MMOL in IV NORMAL SALINE 250 ML IV ONE (10:17)
[2024-09-06 11:12] VITALS: BP 102/51; TEMP 98.5; O2SAT 96
[2024-09-06] MEDS: MAGNESIUM SULFATE/D5W 100 ML IV SCH (11:25)
[2024-09-06 15:36] VITALS: BP 134/73; TEMP 98; O2SAT 94
[2024-09-06 19:52] VITALS: BP 141/75; TEMP 99.1; O2SAT 94
[2024-09-07 04:53] VITALS: BP 102/72; TEMP 98.7; O2SAT 93
[2024-09-07 06:45] LABS: CALCIUM 8.5 mg/dL (8.5-10.1); CREATININE 0.5 mg/dL (0.6-1.3)
[2024-09-07 12:00] VITALS: BP 143/77; TEMP 98.4; O2SAT 96
[2024-09-07] MEDS: POTASSIUM CHLORIDE 20 MEQ POWDER PACKET PO ONE (12:31)
[2024-09-07 16:00] VITALS: BP 143/80; TEMP 98.1; O2SAT 94
[2024-09-07 17:38] VITALS: BP 143/77
== END 2024-09-07 19:00 | disposition hospice, home (50) | DRG 720 ==
LOC: ER 23:25 → TELE3 08-30 01:03 → MEDSURG3 09-03 10:06
PROVIDERS: ATTEND Student in an Organized Health Care Education/Training Program
PROC: 05HF33Z Insertion of Infusion Device into Left Cephalic Vein, Percutaneous Approach (ICD-10-PCS; principal; 2024-09-02)
PROC: 05HD33Z Insertion of Infusion Device into Right Cephalic Vein, Percutaneous Approach (ICD-10-PCS; 2024-09-03)
DX: A41.59 Other Gram-negative sepsis (principal); G92.8 Other toxic encephalopathy; L89.323 Pressure ulcer of left buttock, stage 3; E44.0 Moderate protein-calorie malnutrition; E87.0 Hyperosmolality and hypernatremia; D68.59 Other primary thrombophilia; E83.39 Other disorders of phosphorus metabolism; E86.0 Dehydration; R65.20 Severe sepsis without septic shock; N39.0 Urinary tract infection, site not specified; E11.65 Type 2 diabetes mellitus with hyperglycemia; E87.6 Hypokalemia; G40.909 Epilepsy, unspecified, not intractable, without status epilepticus; E66.9 Obesity, unspecified; K62.89 Other specified diseases of anus and rectum; D49.6 Neoplasm of unspecified behavior of brain; B96.4 Proteus (mirabilis) (morganii) as the cause of diseases classified elsewhere; E83.42 Hypomagnesemia; E78.5 Hyperlipidemia, unspecified; G93.89 Other specified disorders of brain; I10 Essential (primary) hypertension; Z79.84 Long term (current) use of oral hypoglycemic drugs; Z68.26 Body mass index [BMI] 26.0-26.9, adult; Z74.09 Other reduced mobility; Z79.82 Long term (current) use of aspirin; Z79.899 Other long term (current) drug therapy; Z87.440 Personal history of urinary (tract) infections; Z92.3 Personal history of irradiation; Z86.711 Personal history of pulmonary embolism; Z79.01 Long term (current) use of anticoagulants
CPT/HCPCS: 36415; 70450; 71045; 74018; 83550; 83605; 83735; 84100; 84443; 84484; 85025; 85730; 87040; 87077; 87086; 93307; A4606; A4663; A6209; A6213; G0378; J0696; J1650; J1815; J1953; J2405; J2470; J2543; J3475; J3480; J3490; J7040; J7042